=== PATIENT | male | born 1985 | race Caucasian/White ===

== ENCOUNTER 2023-06-06 14:21 | Inpatient (IN) | payer OTHER, SELFPAY ==
--- NOTE | ~2023-06-06 | XR_ITS ---
EXAMINATION: XR HAND/WRIST, RIGHT CLINICAL INFORMATION: Swelling and cellulitis COMPARISON: None TECHNIQUE: PA, lateral, and oblique views of the right hand and wrist. FINDINGS: The bones and soft tissues are unremarkable. No fracture. Alignment is anatomic. Joint spaces are maintained. No erosions or soft tissue calcifications. XR/XR hand wrist RT IMPRESSION: Normal radiographs of the hand and wrist.
[2023-06-06 15:56] VITALS: BP 132/94; PULSE 71; RESP 18; TEMP 37.4; O2SAT 100; BMI 27.1
--- NOTE | 2023-06-06 16:00 | ED_ITS ---
HPI - Extremity Injury (Upper) General Chief Complaint: Extremity Injury, Upper Stated Complaint: hand infection, swollen Time Seen by Provider: 06/06/23 18:32 History of Present Illness HPI narrative: 38 y/o M patient; H IVDU with cocaine; presents from home reporting approx 6 days ago he injected cocaine IV into his right hand. He believed the needle was clean. He is right hand dominant. He noticed that it initially was a little swollen and warm, however thought it may clear up on its own. He went to an Urgent Care and was referred to the ED. He denies known systemic symptoms such as fever or chills, nausea/vomiting, diarrhea, difficulty breathing, or chest pain. He states he had a similar event happen several years ago in his right upper forearm. He denies alcohol use. Related Data Allergies Allergy/AdvReac Type Severity Reaction Status Date / Time No Known Allergies Allergy Verified 06/06/23 16:00 Review of Systems 2 Review of Systems: Yes all other systems are reviewed and are negative PMFSH Past Medical History Attestation statement: The following information was validated with the patient. Source: old records reviewed Social History Social History Advance Directives: No Advance Directives Information Provided: No Physical Exam 2 Vital Signs: Vital Signs: Last Vital Signs Temp 99.4 F 06/06/23 15:56 Pulse 71 06/06/23 15:56 Resp 18 06/06/23 15:56 BP 132/94 H 06/06/23 15:56 Pulse Ox 100 06/06/23 15:56 O2 Del Method Room Air 06/06/23 15:56 BMI result Body Mass Index 27.1 Patient had temp 99.4F, otherwise hemodynamically stable. HEENT: Head: Yes normal to inspection and Yes atraumatic Eyes: General: appearance normal, both eyes and all related structures P upils: Equal, round and reactive pupils present EOM: EOMs intact bilaterally Neck: Neck: Yes normal visual inspection and Yes full ROM Chest: Chest palpation & inspection: normal inspection of the chest and normal palpation of entire chest wall Resp: Effort & Inspection: normal respiratory effort and able to speak in complete sentences Auscultation: clear to auscultation bilaterally Cardio: Rate: regular rate Rhythm: regular rhythm Peripheral pulses: P eripheral pulses 2+ throughout GI: Inspection: Yes normal to inspection Palpation (GI): Soft to palpation, not firm, nontender, no guarding and not rigid Auscultation: normal bowel sounds Neuro: Cranial nerves: Yes Equal, round and reactive pupils present Extrem: Other: Right upper extremity: redness to mid-forearm, edema of hand and fingers, warmth to extremity, ROM limited due to pain and edema. Palpable radial pulse. Soft compartments. Course Course Course Narrative: RME:?38 yo male hx of IVDU here w/ swelling/ redness to right hand/wrist x5 days after injecting drugs into his hand. was seen at yesterday and they advised him to come to the ED however he decided to wait. he was not started on abx at that time. now has increased swelling/ redness and reduced ROM to hand/wrist. significant swelling to right hand/wrist up to mid forearm. dec ROM to right wrist/hand. labs, lactate, blood cultures, imaging ordered. Full HPI, ROS and PE to be performed by the primary ED provider. Reevaluation(s) Reevaluation #1: Reviewed triage work up. Added antibiotics with Cefepime and Vancomycin for IVDU cellulitis. Discussed with orthopedics who agree with plan for admission to medicine for IV antibiotics. Labs with elevated leukocytosis. CRP 10.92. Plan: Admit to hospitalist Condition: Stable Medical Decision Making Lab Data 06/06/23 18:15 06/06/23 18:15 Labs: Lab Results 06/06/23 Range/Units 18:15 WBC 15.5 H (4.8-10.8) X10*3/uL RBC 4.53 L (4.60-5.80) X10*6/uL Hgb 12.8 L (14.0-18.0) g/dl Hct 38.3 L (42.0-52.0) % MCV 84.5 (80.0-98.0) fL MCH 28.3 (27.0-33.0) pg MCHC 33.4 (31.0-36.0) g/dl RDW 12.6 (11.0-16.0) % Plt Count 347 (160-400) X10*3/uL MPV 9.0 L (9.4-12.4) fL Immature Gran % (Auto) 0.5 H (0.0-0.4) % Neut % (Auto) 77.6 H (45-73) % Lymph % (Auto) 12.2 L (20-40) % [place] % (Auto) 9.5 (2-11) % Eos % (Auto) 0.1 (0-4) % Baso % (Auto) 0.1 (0-2) % Lymph # (Auto) 1.9 (1.2-4.9) X10*3/uL [place] # (Auto) 1.5 H (0.1-1.2) X10*3/uL Eos # (Auto) 0.0 (0.0-0.4) X10*3/uL Baso # (Auto) 0.0 (0.0-0.2) X10*3/uL Abs Immat Gran (auto) 0.08 H (0.00-0.03) X10*3/uL Absolute Neuts (auto) 12.0 H (2.0-8.3) x10*3/uL Absolute Nucleated RBC 0.000 (0.0-0.012) X10*3/uL Nucleated RBC % (auto) 0.0 (0.0-0.2) /100WBC Sodium 136 (135-145) mmol/L Potassium 3.7 (3.3-5.1) mmol/L Chloride 98 (96-108) mmol/L Carbon Dioxide 28 (22-29) mmol/L Anion Gap 14 (12-20) BUN 13 (9-16) mg/dL Creatinine 0.90 (0.5-1.4) mg/dL Estim Creat Clear Calc 124.5 Estimated GFR > 60 Random Glucose 142 H (60-115) mg/dL Lactic Acid 1.6 (0.5-2.0) mmol/L Calcium 9.7 (8.4-10.2) mg/dL Magnesium 2.2 (1.6-2.6) mg/dL Total Bilirubin 1.3 H (0.0-1.0) mg/dL AST 19 (5-37) U/L ALT 22 (0-40) U/L Alkaline Phosphatase 79 (39-117) U/L C-Reactive Protein 10.92 H (< or = 0.50) mg/dL Total Protein 8.0 (6.5-8.0) g/dL Albumin 4.2 (3.5-5.0) g/dL Lipase 9 (8-78) U/L Discharge Plan Discharge Clinical Impression: Cellulitis of hand, right, IVDU (intravenous drug user) Patient Disposition: Admitted As Inpatient Print Language: Moldovan
[2023-06-06 18:22] LABS: MANUAL DIFF FLAG NO
[2023-06-06 18:23] LABS: Basophils Percent Auto 0.1 % (0-2); Eosinophils Percent Auto 0.1 % (0-4); Hematocrit 38.3 % (42.0-52.0); Hemoglobin 12.8 g/dl (14.0-18.0); Imm Gran Abs Auto 0.08 X10*3/uL (0.00-0.03); Imm Gran Pct Auto 0.5 % (0.0-0.4); Lymphocytes Absolute Auto 1.9 X10*3/uL (1.2-4.9); Lymphocytes Percent Auto 12.2 % (20-40); Mean Corpuscular HGB Conc 33.4 g/dl (31.0-36.0); Mean Corpuscular Hemoglobin 28.3 pg (27.0-33.0); Mean Corpuscular Volume 84.5 fL (80.0-98.0); Monocytes Absolute Auto 1.5 X10*3/uL (0.1-1.2); Monocytes Percent Auto 9.5 % (2-11); Neutrophils Percent Auto 77.6 % (45-73); Platelet Count 347 X10*3/uL (160-400); Red Blood Count 4.53 X10*6/uL (4.60-5.80); Red Cell Distribution Width 12.6 % (11.0-16.0); White Blood Count 15.5 X10*3/uL (4.8-10.8)
[2023-06-06 18:38] LABS: Alanine Aminotransferase 22 U/L (0-40); Albumin Level 4.2 g/dL (3.5-5.0); Alkaline Phosphatase 79 U/L (39-117); Anion Gap 14 (12-20); Aspartate Amino Transferase 19 U/L (5-37); Bilirubin Total 1.3 mg/dL (0.0-1.0); Blood Urea Nitrogen 13 mg/dL (9-16); C Reactive Protein 10.92 mg/dL (< or = 0.50); Calcium 9.7 mg/dL (8.4-10.2); Carbon Dioxide 28 mmol/L (22-29); Chloride 98 mmol/L (96-108); Creatinine Clr Calc Pharmacy 124.5; Estimated Glomerular Filt Rate > 60; Glucose Random 142 mg/dL (60-115); Lipase 9 U/L (8-78); Magnesium 2.2 mg/dL (1.6-2.6); Potassium 3.7 mmol/L (3.3-5.1); Sodium 136 mmol/L (135-145)
[2023-06-06 18:39] LABS: Lactic Acid 1.6 mmol/L (0.5-2.0)
[2023-06-06] MEDS: cefEPime HCl 2 GM in 0.9 % Sodium Chloride 50 ML IV (18:48)
[2023-06-06 19:06] LABS: Erythrocyte Sedimentation Rate 38 MM/HR (0-15)
--- NOTE | 2023-06-06 19:29 | P.HPHOSP_ITS ---
History of Present Illness Date of Service: 06/06/23 Attending physician on admission: Tatianna Farfan Chief Complaint: Right hand swelling and redness Pt is a 38-year-old male with a PMH significant for?IVDU with cocaine and heroin who presents to the ED for evaluation of right hand swelling, redness, and pain x5-6 days. Patient states has been injecting in his right hand and upper arm, last used cocaine 4 days ago and heroin ?a couple days ago?. Patient initially assumed swelling would go away after a few days, but symptoms worsen until pain was so intense he came to the ED for further evaluation. Denies systemic symptoms: No fever, chills, nausea, or vomiting. Denies shortness of breath. No significant chest pain/pressure, palpitations. Denies abdominal pain. In the ED pt was hypertensive and with elevated temperature of 99.4 degrees, vitals otherwise WNL. Labs were significant for leukocytosis of 15.5, ESR 38, bilirubin 1.3, and CRP 10.92. No significant electrolyte abnormalities. Renal function WNL. Lactic acid WNL at 1.6. X-ray of left hand and wrist showed normal radiographs of the hand and wrist. ED consulted Orthopedics who suggested admission to medicine and starting broad-spectrum antibiotics. Pt was treated with cefepime and vancomycin. Pt will be admitted to the hospital for treatment and further evaluation of right hand cellulitis secondary to IVDU. Review of Systems 2 Review of Systems: Right hand pain, swelling, redness x5-6 days No fever, chills, nausea, vomiting, abdominal pain Denies shortness of breath No chest pain/pressure, palpitations PMFSH Social History Advance Directives: No Advance Directives Information Provided: No Meds Allergies Allergy/AdvReac Type Severity Reaction Status Date / Time No Known Allergies Allergy Verified 06/06/23 16:00 Active Medications: Current Medications Acetaminophen (Acetaminophen 325 Mg Tablet) 650 mg PO Q6H PRN PRN Reason: Pain, Mild (Pain Scale 1-3) Enoxaparin Sodium (Enoxaparin Sodium 40 Mg/0.4 Ml Syringe) 40 mg SUBCUT Q24H REGINO Vancomycin HCl (Vancomycin/Ns) 2,000 mg in 500 mls @ 250 mls/hr IV ONCE ONE Stop: 06/06/23 20:36 Melatonin (Melatonin 3 Mg Tablet) 6 mg PO BEDTIME PRN PRN Reason: Insomnia Ondansetron HCl (Ondansetron Hcl 4 Mg/2 Ml Vial) 4 mg IVPUSH Q8H PRN PRN Reason: Nausea and Vomiting Pharmacy Consult (Consult Rx Vancomycin Dosing) 1 each MISCELLANE DAILY PRN PRN Reason: Consult order Sodium Chloride (0.9 % Sodium Chloride Flush 3 Ml Syringe) 3 ml [facility] Home Medications ?Medication ?Instructions ?Recorded ?Confirmed ?Last Taken ?Type No Known Home Meds 06/06/23 06/06/23 Unknown History Physical Exam 2 Vital Signs and Narrative: Vital Signs: Last Vital Signs Temp 99.4 F 06/06/23 15:56 Pulse 71 06/06/23 15:56 Resp 18 06/06/23 15:56 BP 132/94 H 06/06/23 15:56 Pulse Ox 100 06/06/23 15:56 O2 Del Method Room Air 06/06/23 15:56 BMI result Body Mass Index 27.1 General: AOx3, uncomfortable, in no acute distress Resp: CTA bilaterally CVS: S1, S2, RRR GI: +BS, NT, no distention Skin: Warm, dry Neuro: Cranial nerves II-XII grossly intact bilaterally. Motor grossly intact bilaterally Extremities: Right hand and wrist swelling, erythema, and warmth as pictured below. ROM of fingers and wrist limited secondary to pain and swelling. Psych: Appropriate affect Results Labs 06/06/23 18:15 06/06/23 18:15 Labs: Laboratory Results - last 24 hr 06/06/23 18:15 MCV 84.5 MCH 28.3 MCHC 33.4 RDW 12.6 Plt Count 347 MPV 9.0 L Immature Gran % (Auto) 0.5 H Neut % (Auto) 77.6 H Lymph % (Auto) 12.2 L [place] % (Auto) 9.5 Eos % (Auto) 0.1 Baso % (Auto) 0.1 Lymph # (Auto) 1.9 [place] # (Auto) 1.5 H Eos # (Auto) 0.0 Baso # (Auto) 0.0 Abs Immat Gran (auto) 0.08 H Absolute Neuts (auto) 12.0 H Absolute Nucleated RBC 0.000 Nucleated RBC % (auto) 0.0 ESR 38 H Anion Gap 14 Estim Creat Clear Calc 124.5 Estimated GFR > 60 Random Glucose 142 H Lactic Acid 1.6 Calcium 9.7 Magnesium 2.2 Total Bilirubin 1.3 H AST 19 ALT 22 Alkaline Phosphatase 79 C-Reactive Protein 10.92 H Total Protein 8.0 Albumin 4.2 Lipase 9 Imaging Radiologist's Impressions: Impressions Hand/Wrist X-Ray 06/06/23 16:11 IMPRESSION: Normal radiographs of the hand and wrist. Assessment and Plan (1) Cellulitis of hand, right: Status: Acute (2) IVDU (intravenous drug user): Status: Acute Plan Pt is a 38-year-old male with a PMH significant for?IVDU with cocaine and heroin who presents to the ED for evaluation of right hand swelling, redness, and pain x5-6 days. Pt will be admitted to the hospital for treatment and further evaluation of right hand cellulitis secondary to IVDU. Right hand cellulitis Secondary to IVDU with cocaine, heroin Pt does not meet sepsis criteria: Leukocytosis, but no tachycardia, tachypnea, or fever; lactic acid WNL Patient started on broad-spectrum antibiotics in the ED Will treat with vancomycin, started 06/06/2023 Tramadol for pain management Orthopedic consult Follow cultures IVDU Pt with recent injection of cocaine and heroin Will give methadone 30 mg x1 dose Addiction medicine consult Monitor on COWS Full Code Attending:?Dr. Farfan DVT Prophylaxis: Lovenox Pt will require a hospitalization of at least two nights for treatment of?right hand cellulitis secondary to IVDU. Given the extent of cellulitis and location in hand and wrist, patient will require hospitalization for the administration of IV antibiotics and specialist consultation with Orthopedics. Quality Stroke Does the patient have a stroke diagnosis?: No VTE Prior VTE?: No VTE Risk Level:: Medical - moderate - high VTE Device Contraindication: Treatment Not Indicated VTE Drug Contraindication: N/A - Med Ordered
[2023-06-06] MEDS: traMADoL HCL 50 MG TABLET PO ×2 (19:40→23:00)
[2023-06-06] MEDS: vancomycin/NS 2,000 MG/500 ML PLAST..BAG 250 MG IV (19:43)
[2023-06-06] MEDS: Enoxaparin Sodium 40 MG/0.4 ML SYRINGE SUBCUT (19:44)
--- NOTE | 2023-06-06 19:45 | PHA.MEDREC ---
Pharmacy Consult ? Medication Reconciliation Pharmacy has completed the medication reconciliation. Patient confirmed he is not on medications at home including OTC.
[2023-06-06 19:55] VITALS: BP 147/97; PULSE 78; RESP 18; TEMP 37.4; O2SAT 100
--- NOTE | 2023-06-06 20:02 | PC.NURSE ---
security called to assist with checking patients belongings. pt cooperative with security check
--- NOTE | 2023-06-06 20:06 | MHC.EDTECH ---
PT BELONGINGS (2 KNIVES, PEPPER SPRAY) IN SECURITY OFFICE.
[2023-06-06 20:11] VITALS: PULSE 78
--- NOTE | 2023-06-06 20:15 | PHA.PROG ---
Admission Date/Time: June 06, 2023 18:53 Indication: SKIN INFECTION Weight in k.718 kg Adjusted body weight in Kg: [place] body weight in Kg: Obesity Dosing Indication % IBW: Serum Creatinine - Last 168 Hours 06/06/23 18:15 Creatinine 0.90 Estimated CrCl and GFR - Last 168 Hours 06/06/23 18:15 Estim Creat Clear Calc 124.5 Estimated GFR > 60 Vancomycin Loading Dose: 2000 MG Current Vancomycin Dosing Regimen: 1250 MG Q12H Vancomycin Monitoring using AUC goal of 400 - 600 range with trough as surrogate marker: UCB=354 TROUGH=14.3 Date and Time for next Vancomycin Level to be drawn: 06/08/23 @0600 Pharmacist Comments on Vancomycin Plan: Vancomycin dosing will take advantage of [employer] as a clinical decision support tool that uses Bayesian modeling to calculate individual patient's pharmacokinetic parameters and forecast the patient's drug concentration time course with the target goal AUC 24 range of 400 - 600 mg/L/hr.
[2023-06-06 21:53] VITALS: BMI 24.0
[2023-06-06 21:54] VITALS: BP 166/97; PULSE 71; RESP 18; TEMP 37.2; O2SAT 98
[2023-06-06] MEDS: methADONE HCl 20 MG/2 ML ORAL.CONC 30 MG PO (22:13)
[2023-06-06] MEDS: Melatonin 3 MG TABLET 6 MG PO (23:00)
--- NOTE | 2023-06-06 23:20 | MHC.PIE ---
p; pt arrived from ed c/o pain 12/05 rt hand throbbing and burning. note; pt reports methadone not given in ed i; dr crenshaw notified. new order methadone now p; 40 min later. pt cont to c/o pain 12/05 rt hand, pt also c/o insomnia i; dr crenshaw noltified. give ultram early dose now e; pt given early dose ultram, melatonin and ice pack. will cont to monitor
[2023-06-06 23:47] VITALS: PULSE 71
[2023-06-07 04:00] VITALS: BP 146/99; PULSE 61; RESP 18; TEMP 37.3; O2SAT 98
[2023-06-07] MEDS: traMADoL HCL 50 MG TABLET PO (04:32)
--- NOTE | 2023-06-07 06:21 | MHC.PIE ---
p; pt wants to leave AMA. pt educated on need for iv abx for cellulitis with pt adament about leaving i; dr crenshaw notified; explain to pt the need for at least the po abx. nursing sup notified e; pt welling to stay for an hour for abx prescription. will cont to monitor
[2023-06-07 06:27] LABS: Anion Gap 14 (12-20); Blood Urea Nitrogen 10 mg/dL (9-16); Calcium 9.5 mg/dL (8.4-10.2); Carbon Dioxide 24 mmol/L (22-29); Chloride 101 mmol/L (96-108); Creatinine Clr Calc Pharmacy 147.4; Estimated Glomerular Filt Rate > 60; Glucose Random 136 mg/dL (60-115); Potassium 3.7 mmol/L (3.3-5.1); Sodium 135 mmol/L (135-145)
[2023-06-07 06:31] LABS: Basophils Percent Auto 0.1 % (0-2); Hematocrit 37.7 % (42.0-52.0); Hemoglobin 12.8 g/dl (14.0-18.0); Imm Gran Abs Auto 0.11 X10*3/uL (0.00-0.03); Imm Gran Pct Auto 0.6 % (0.0-0.4); Lymphocytes Absolute Auto 1.7 X10*3/uL (1.2-4.9); Lymphocytes Percent Auto 8.8 % (20-40); MANUAL DIFF FLAG SCAN; Mean Corpuscular Hemoglobin 28.2 pg (27.0-33.0); Mean Platelet Volume 9.4 fL (9.4-12.4); Monocytes Absolute Auto 1.9 X10*3/uL (0.1-1.2); Neutrophils Absolute Auto 15.5 x10*3/uL (2.0-8.3); Neutrophils Percent Auto 80.5 % (45-73); Platelet Count 400 X10*3/uL (160-400); Red Blood Count 4.54 X10*6/uL (4.60-5.80); Red Cell Distribution Width 12.5 % (11.0-16.0); SCAN SMEAR FLAG 1; White Blood Count 19.3 X10*3/uL (4.8-10.8)
[2023-06-07 07:02] LABS: SLIDE REVIEW VERIFIED
--- NOTE | 2023-06-07 07:44 | PM.DS ---
DS: Providers Provider Date of Service: 06/07/23 Date of admission: 06/06/23 18:53 Date of discharge: 06/07/23 Primary care physician: None Physician Consults: 06/06/23 19:31 Addiction Medicine Routine Consulting Provider: Addiction Covering Reason for consultation: polysubstance use disorder 06/06/23 19:32 Consult to Orthopedics Routine Consulting Provider: [facility] Reason for consultation: Right hand cellulitis Attending physician on discharge: Tayler Gooden Discharging clinician: Tayler Gooden DS: Diagnosis Discharge Diagnosis (1) Cellulitis of hand, right: Status: Acute (2) IVDU (intravenous drug user): Status: Acute DS: Summary Hospital Course Hospital Course: 38-year-old male with a PMH significant for?IVDU with cocaine and heroin who presents to the ED for evaluation of right hand swelling, redness, and pain x5-6 days. Patient states has been injecting in his right hand and upper arm, last used cocaine 4 days ago and heroin ?a couple days ago?. Patient initially assumed swelling would go away after a few days, but symptoms worsen until pain was so intense he came to the ED for further evaluation. Denies systemic symptoms: No fever, chills, nausea, or vomiting. Denies shortness of breath. No significant chest pain/pressure, palpitations. Denies abdominal pain. In the ED pt was hypertensive and with elevated temperature of 99.4 degrees, vitals otherwise WNL. Labs were significant for leukocytosis of 15.5, ESR 38, bilirubin 1.3, and CRP 10.92. No significant electrolyte abnormalities. Renal function WNL. Lactic acid WNL at 1.6. X-ray of left hand and wrist showed normal radiographs of the hand and wrist. ED consulted Orthopedics who suggested admission to medicine and starting broad-spectrum antibiotics. Pt was treated with cefepime and vancomycin. Pt will be admitted to the hospital for treatment and further evaluation of right hand cellulitis secondary to IVDU. Hospital course: Patient came with the right hand cellulitis,ivdu-patient was started on IV antibiotics, blood cultures sent, leukocytosis is trending up, and swelling and erythema seems similar, range of motion is also limited-patient decided to leave against medical advice-he is alert oriented x3, risks discussed with him in detail length including patient was strongly advised to get IV antibiotics and ortho evaluation . Risk of losing limb, sepsis, including discussed with him in detail he understand and still wants to leave, could able to repeat to me understanding, also explained to him that p.o. antibiotic might not adequate considering his significant cellulitis, he was also strongly advised to go to nearest emergency room get treatment. Patient was also given p.o. antibiotics. plan: Go to nearest emergency room for treatment of cellulitis Doxycycline 100 mg p.o. b.i.d. and Augmentin 875 mg p.o. b.i.d. for 10 days-supply given. Above management discussed with the patient detail length he understand and in agreement with the above plan, staff was present during the time of discussion, patient is alert oriented x3-risk discussed as above, time spent 40 minutes. Time Attestation Total time managing care of this patient today: 40 mintues. Discharge Coordination Time (in mins): 40 min Quality: Safe Use of Opioids Does Pt have an Active Cancer Diagnosis on the Problem List?: No Quality: Stroke Does the patient have a stroke diagnosis?: No Physical Exam Vital Signs: Vital Signs: Last Vital Signs Temp 99.1 F 06/07/23 04:00 Pulse 61 06/07/23 04:00 Resp 18 06/07/23 04:00 BP 146/99 H 06/07/23 04:00 Pulse Ox 98 06/07/23 04:00 O2 Del Method Room Air 06/07/23 04:00 BMI result Body Mass Index 24.0 limited -leaving ama General: AOx3. Resp: CTA bilaterally CVS: S1, S2, RRR GI: +BS, NT, no distention Skin: Warm, dry Neuro: Cranial nerves II-XII grossly intact bilaterally. Motor grossly intact bilaterally Extremities: Right hand and wrist swelling, erythema, and warmth as pictured below. ROM of fingers and wrist limited secondary to pain and swelling.(please see pic in h&P) Psych: Appropriate affect DS: Data Data Completed and Pending Labs on day of discharge: Laboratory Results - last 24 hr 06/06/23 06/07/23 18:15 05:40 WBC 15.5 H 19.3 H RBC 4.53 L 4.54 L Hgb 12.8 L 12.8 L Hct 38.3 L 37.7 L MCV 84.5 83.0 MCH 28.3 28.2 MCHC 33.4 34.0 RDW 12.6 12.5 Plt Count 347 400 MPV 9.0 L 9.4 Immature Gran % (Auto) 0.5 H 0.6 H Neut % (Auto) 77.6 H 80.5 H Lymph % (Auto) 12.2 L 8.8 L [place] % (Auto) 9.5 10.0 Eos % (Auto) 0.1 0.0 Baso % (Auto) 0.1 0.1 Lymph # (Auto) 1.9 1.7 [place] # (Auto) 1.5 H 1.9 H Eos # (Auto) 0.0 0.0 Baso # (Auto) 0.0 0.0 Abs Immat Gran (auto) 0.08 H 0.11 H Absolute Neuts (auto) 12.0 H 15.5 H Absolute Nucleated RBC 0.000 0.000 Nucleated RBC % (auto) 0.0 0.0 Smear Tech's Comments VERIFIED ESR 38 H Sodium 136 135 Potassium 3.7 3.7 Chloride 98 101 Carbon Dioxide 28 24 Anion Gap 14 14 BUN 13 10 Creatinine 0.90 0.76 Estim Creat Clear Calc 124.5 147.4 Estimated GFR > 60 > 60 Random Glucose 142 H 136 H Lactic Acid 1.6 Calcium 9.7 9.5 Magnesium 2.2 Total Bilirubin 1.3 H AST 19 ALT 22 Alkaline Phosphatase 79 C-Reactive Protein 10.92 H Total Protein 8.0 Albumin 4.2 Lipase 9 Discharge Plan Discharge Anticipated Discharge Date/Time: 06/07/23 07:36 Patient Disposition: Left Against Medical Advice Discharge Diagnosis: Right hand cellulitis Referrals: Physician,None [Primary Care Provider] - 1 Week Discharge Medications: New amoxicillin-pot clavulanate 875-125 mg tablet 1 tab PO Q12H Qty: 20 0RF doxycycline hyclate 100 mg capsule 100 mg PO BID Qty: 20 0RF No Action No Known Home Meds Discharge Orders: Discharge Order (Routine); Ordered 06/07/23 Ordered By: Tayler Gooden Diet: Advance to usual diet Activity on Discharge: As tolerated Print Language: Bhutanese Care Plan Goals: Patient came with the right hand cellulitis,ivdu-patient was started on IV antibiotics, blood cultures sent, leukocytosis is trending up, and swelling and erythema seems similar, range of motion is also limited-patient decided to leave against medical advice-he is alert oriented x3, risks discussed with him in detail length including patient was strongly advised to get IV antibiotics and ortho evaluation . Risk of losing limb, sepsis, including discussed with him in detail he understand and still wants to leave, could able to repeat to me understanding, also explained to him that p.o. antibiotic might not adequate considering his significant cellulitis, he was also strongly advised to go to nearest emergency room get treatment. Patient was also given p.o. antibiotics. Health Concerns: As above. Plan of Treatment: Doxycycline 100 mg p.o. b.i.d. and Augmentin 875 mg p.o. b.i.d. for 10 days-supply given. Assessment: as above. Discharge Date/Time: 06/07/23 08:26
[2023-06-07] MEDS: Doxycycline Monohydrate 100 MG CAPSULE PO (07:48)
[2023-06-07] MEDS: Amoxicillin/Potassium Clav 875 MG TABLET PO (07:48)
--- NOTE | 2023-06-07 08:26 | MHC.CM.PN ---
Patient left AMA prior to being seen by case management.
== END 2023-06-07 08:26 | disposition left against medical advice (07) | DRG 383 ==
LOC: HO.ED 18:53 → HO.EDOVER 18:59 → HO.S3 19:55
PROVIDERS: Physician Assistant Medical; Admitting Provider Student in an Organized Health Care Education/Training Program; Emergency Provider Emergency Medicine; Visit Provider Internal Medicine
DX: L03.113 Cellulitis of right upper limb (principal); F11.90 Opioid use, unspecified, uncomplicated; F14.90 Cocaine use, unspecified, uncomplicated; F17.210 Nicotine dependence, cigarettes, uncomplicated; I10 Essential (primary) hypertension; Z71.6 Tobacco abuse counseling
CPT/HCPCS: 36415; 73110; 73130; 80048; 80053; 83605; 83690; 83735; 85025; 85652; 86140; 87040; 99221; 99285; J0692; J1650; J3370

== ENCOUNTER → 2023-06-06 18:53 | Outpatient (BNV) | payer OTHER, SELFPAY | PROVIDERS: Admitting Provider Student in an Organized Health Care Education/Training Program; Emergency Provider Emergency Medicine; Visit Provider Student in an Organized Health Care Education/Training Program | DX: L03.113 Cellulitis of right upper limb (principal); F19.90 Other psychoactive substance use, unspecified, uncomplicated | CPT/HCPCS: 99222; 99239 ==

== ENCOUNTER 2024-05-20 13:19 | Outpatient (REF) | payer MEDICAID, SELFPAY ==
[2024-05-20 17:03] LABS: Alanine Aminotransferase 63 U/L (0-40); Albumin Level 4.4 g/dL (3.5-5.0); Alkaline Phosphatase 85 U/L (39-117); Aspartate Amino Transferase 45 U/L (5-37); Bilirubin Direct 0.2 mg/dL (0.0-0.5); Bilirubin Total 0.6 mg/dL (0.0-1.0); Total Protein 7.6 g/dL (6.5-8.0)
[2024-05-21 03:43] LABS: Syphilis Screen Nonreactive (Nonreactive)
[2024-05-21 04:06] LABS: HBsAGNum1 0.31 S/CO (0.00-0.99); HIV AB/AG Nonreactive (Nonreactive); HIV Num 1 0.09 S/CO (0.00-0.99); Hepatitis B Surface Antigen Negative (Negative); ~HepC Num1 16.23 S/CO (0.00-0.79); ~Hepatitis C Antibody Reactive (Nonreactive)
[2024-05-22 16:38] LABS: HCV Log PCR 7.23 Log IU/mL (NOT DETECTED)
[2024-05-22 22:18] LABS: TS Negative Control Passed; TS Panel A 0; TS Panel B 3; TS Positive Control Passed; TSpotTB Negative (Negative)
== END 2024-05-20 13:20 | disposition home or self-care (01) ==
LOC: HO.HHCL 13:19
PROVIDERS: Visit Provider Family Medicine
DX: B19.20 Unspecified viral hepatitis C without hepatic coma (principal)
CPT/HCPCS: 36415; 80076; 86481; 86780; 86803; 87340; 87389; 87522

== ENCOUNTER 2024-06-17 09:57 | Outpatient (REF) | payer MEDICAID, SELFPAY ==
--- OUTSIDE RECORDS SUMMARY | 2024-06-17 11:16 | XMS_ITS | Clinical Summary ---
Author Organization [employer] Address [address] [facility] 7t [place] [address] Care Team Providers Care Seat Joiner Chainstitch Name Role Phone Unavailable Primary Care Provider Unavailabl e Allergies No known active allergies Medications cloNIDine (Catapres) 0.1 MG tabletIndicat ions:Opioid type dependence, continuous (CMS/HCC) 1 tablet PO q 8-12 hours for withdrawal. 6 tablet 06/29/19 24 Active ondansetron (Zofran) 4 MG tabletIndicat ions:Opioid type dependence, continuous (CMS/HCC) 1 tab PO q8-12 hours prn nausea or vomiting. 15 tablet 06/29/19 24 Active ibuprofen 800 MG tablet 1 tablet PO q8 hours prn pain. Take with food. 30 tablet 06/29/19 24 Active naloxone (Narcan) 4 mg/0.1 mL nasal sprayIndicati ons:Opioid type dependence, continuous (CMS/HCC) Administer 1 spray (4 mg) into affected nostril(s) if needed for opioid reversal. May repeat every 2-3 minutes if needed, alternating nostrils, until medical assistance becomes available. 2 each 5 04/02/19 25 026 Active Buprenorphine HCl-Naloxone HCl (Suboxone) 8-2 MG SL filmIndicatio ns:Opioid use Place 3 Film under the tongue Once per day for 7 days. 21 Film 06/13/19 25 025 Active Buprenorphine HCl-Naloxone HCl (Suboxone) 8-2 MG SL filmIndicatio ns:Opioid use Place 3 Film under the tongue Once per day for 7 days. 21 Film 05/16/19 25 025 Discontinued(Re order (will not trigger notification to Pharmacy)) Buprenorphine HCl-Naloxone HCl (Suboxone) 8-2 MG SL filmIndicatio ns:Opioid use Place 3 Film under the tongue Once per day for 7 days. 21 Film 05/23/19 25 025 Discontinued(Re order (will not trigger notification to Pharmacy)) Buprenorphine HCl-Naloxone HCl (Suboxone) 8-2 MG SL filmIndicatio ns:Opioid use Place 3 Film under the tongue Once per day for 7 days. 21 Film 05/28/19 25 025 Discontinued(Re order (will not trigger notification to Pharmacy)) Buprenorphine HCl-Naloxone HCl (Suboxone) 8-2 MG SL filmIndicatio ns:Opioid use Place 3 Film under the tongue Once per day for 7 days. 21 Film 06/05/19 25 025 Discontinued(Re order (will not trigger notification to Pharmacy)) Active Problems Problem Noted Date Diagnosed Date Opioid use 04/02/2024 Assessment & Plan (05/06/2024 5:17 PM EDT): - stage of change: action - Utox review: bup, drew, thc (patient confirms) - Overdose risk: decreased tolerance (released from halfway in Jan 2024); mixed drug use; history of overdose; using alone - Continue current recovery support - Continue current recovery effort - Reviewed harm reduction and overdose prevention Assessment & Plan (04/02/2024 12:01 PM EST): - stage of change: action - Utox review: bup, drew, thc (patient confirms) - Overdose risk: decreased tolerance (released from halfway in Jan 2024); mixed drug use; history of overdose; using alone - Continue current recovery support - Continue current recovery effort - Reviewed harm reduction and overdose prevention Encounters Date Type Department Care Team Description 06/17/2024 10:00 AM EDT Office Visit [facility] [address] [place] [address] Ramon Weller MD Uncomplicated opioid dependence (CMS/HCC) (Primary Dx); Tobacco use disorder; Cocaine use 06/17/2024 Travel 06/11/2024 Refill [facility] [address] [place] [address] Norma Pedraza RN Opioid use 06/10/2024 10:00 AM EDT Clinical Support [address] [address] Norma Pedraza RN Opioid type dependence, continuous (CMS/HCC) (Primary Dx) 06/10/2024 Patient Outreach [address] [address] Robert Cifuentes Recovery Supports 06/10/2024 Travel 06/04/[address] [address] Norma Pedraza RN Opioid use 06/03/2024 11:00 AM EDT Clinical Support [address] [address] Norma Pedraza RN Opioid type dependence, continuous (CMS/HCC) (Primary Dx) 06/03/2024 Travel 06/03/[address] [address] Phyllis Byrd RN 05/29/2024 Orders Only [address] [address] Phyllis Byrd, JAKE Hepatitis C virus infection without hepatic coma, unspecified chronicity 05/27/2024 10:30 AM EDT Clinical Support [address] [address] Phyllis Byrd RN Uncomplicated opioid dependence (CMS/HCC) (Primary Dx) 05/27/[address] [address] Phyllis Byrd, JAKE Opioid use 05/27/[address] [address] Phyllis Byrd RN 05/27/2024 Travel 05/22/[address] [address] Norma Pedraza RN Opioid use 05/20/2024 2:45 PM EDT Office Visit [address] [address] Grant Hickman MD Opioid type dependence, continuous (CMS/HCC) (Primary Dx) 05/20/2024 Orders Only [facility] [place] [address] Marilynn Coffman MD 05/20/2024 Travel 05/15/2024 Refill [facility] [place] [address] Norma Pedraza RN Opioid use 05/15/2024 Patient Outreach [facility] [place] [address] Robert Cifuentes Recovery Supports 05/14/2024 9:00 AM EDT Clinical Support [facility] [place] [address] Myriam Oconnor RN Uncomplicated opioid dependence (CMS/HCC) (Primary Dx) 05/14/2024 Patient Outreach [facility] [place] [address] Kirt Alcantara Recovery Supports 05/14/2024 Travel 05/09/2024 Population Health Risk Score [facility] () Department [address] [place] [phone] Provider, Population Health Generic 05/07/2024 3:30 PM EDT Clinical Support [facility] [place] [address] Myriam Oconnor RN Opioid use (Primary Dx) 05/07/2024 Travel 05/07/2024 Refill [facility] [place] [address] Myriam Oconnor RN Opioid use 04/30/2024 9:30 AM EST Clinical Support [facility] [place] [address] Myriam Oconnor RN Uncomplicated opioid dependence (CMS/HCC) (Primary Dx) 04/30/2024 Refill [facility] [place] [address] Myriam Oconnor, JAKE Opioid use 04/30/2024 Travel 04/30/2024 Refill [facility] [place] [address] Myriam Oconnor RN Opioid use 04/23/2024 1:00 PM EST Clinical Support [facility] [address] [place] [phone] Norma Pedraza, JAKE Uncomplicated opioid dependence (CMS/HCC) (Primary Dx) 04/23/2024 Travel 04/16/2024 Refill [facility] [address] [place] [phone] Myriam Oconnor RN Opioid use 04/09/2024 11:00 AM EST Clinical Support [facility] [address] [place] [phone] Myriam Oconnor RN Uncomplicated opioid dependence (CMS/HCC) (Primary Dx) 04/09/2024 Refill [facility] [address] [place] [address] Myriam Oconnor RN Opioid use 04/09/2024 Travel 04/04/2024 Refill [facility] [address] [place] [address] Myriam Oconnor RN Opioid use 04/04/2024 Telephone [facility] [address] [place] [address] Myriam Oconnor, JAKE PT-1 04/04/[address] [address] Myriam Oconnor, JAKE New Patient request 04/02/2024 11:00 AM EST Office Visit [address] [address] Marilynn Coffman MD Opioid use (Primary Dx); Hepatitis C virus infection without hepatic coma, unspecified chronicity; Opioid type dependence, continuous (CMS/HCC) 04/02/2024 Travel 04/01/2024 Telephone [facility] [address] [place] [phone] Norma Pedraza, AJKE from Last 3 Months Immunizations Name Administration Dates Next Due Pfizer Covid-19 Vaccine 12+ lori-sucrose (Sterling C ap) 05/15/2022 Social History Tobacco Use Types Packs/Day Years Used Date Smoking Tobacco: Every Day Cigarettes Smokeless Tobacco: Never Tobacco Cessation:Ready to Q uit: Not Asked; Counseling Given: Not Answered Sex and Gender Information Value Date Recorded Sex Assigned at Male 05/15/2022 9:36 AM EDT Legal Sex Male 9:33 AM EDT Gender Identity Male 05/15/2022 9:36 AM EDT Sexual Orientation Straight 06/18/2023 12 :47 PM EDT Sexual Orientation Choose not to disclose 2023 12:47 PM EDT Last Filed Vital Signs Vital Sign Reading Time Taken Comments Blood Pressure 110/66 06/29/2023 1:20 PM EDT Pulse 80 06/29/2023 1:20 PM EDT Temperature - - Respiratory Rate 16 06/29/2023 1:20 PM EDT Oxygen Saturation - - Inhaled Oxygen Concentration - - Weight - - Height - - Body Mass Index - - Plan of Treatment Upcoming Encounters Date Type Department Care Team (Late st Contact Info) Description 06/24/2024 10:45 AM EDT Office Visit [facility] [address] [place] [phone] Ramon Weller MD [address] [place] [phone] 09/05/2024 10:00 AM EDT Office Visit [facility] [address] [place] [address] Annette Valle MD [address] [place] [phone] Health Maintenance Due Date Last Done Comments Depression Screening 1987 Lipid Panel 1987 SDOH Screening 1987 Alcohol/Substance Use Screening 1999 Family Planning (PISQ) 2002 DTaP/Tdap/Td Vaccines (1 - Tdap) 2006 Pneumococcal Vaccine: Pediatrics (0 to 5 Years) and At-Risk Patients (6 to 49) Years) (1 of 2 - PCV) 2006 COVID-19 Vaccine (2 - 2023-2 5 season) 2023 05/15/2022 Hepatitis B Vaccines (3 of 3 - 19+ 3-dose series) 03/09/2024 01/13/2024, 07/13/2023 Tobacco Screening 05/20/2025 05/20/2024 Zoster Vaccines (1 of 2) 2037 RSV Patients and Patients Aged 60 years or older (1 - 1-dose 75+ series) 2062 Influenza Vaccine Completed 11/29/2023 Hepatitis A Vaccines Completed 01/13/2024, 07/13/2023 HIV Screening Completed 05/20/2024 HIB Vaccines Aged Out No longer eligi ble based on patient's age to complete this topic HPV Vaccines Aged Out No longer eligi ble based on patient's age to complete this topic IPV Vaccines Aged Out No longer eligi ble based on patient's age to complete this topic Meningococcal Vaccine Aged Out No shari thuy eligible based on patient's age to complete this topic RSV under 20 months Aged Out No longe r eligible based on patient's age to complete this topic Rotavirus Vaccines Aged Out No longer eligible based on patient's age to complete this topic Goals Goal Patient Goal Type Associated Problems Recent Progress Patient-Stated? Author Establish reliable transportation General Not on track(2024 9:44 AM EDT) No Aime Encinas, JAKE Note: Will set up PT-1. 04/30/24 PT-1 set up and pt will request rides. Got a ride today. Increase coping skills to promote long-term recovery and improve ability to perform daily activities General On track(2024 9:45 AM EDT) No Myriam Oconnor, JAKE Keep your medical appointments Lifestyle No Myriam Oconnor RN Procedures Procedure Name Priority Date/Time Associated Diagnosis Comments POCT CASSIDY-14 URINE DRUG SCREEN Routine 06/17/2024 9:24 AM EDT Uncomplicated opioid dependence (CMS/HCC) POCT CASSIDY-14 URINE DRUG SCREEN Routine 06/10/2024 2:22 PM EDT Opioid type dependence, continuous (CMS/HCC) POCT CASSIDY-14 URINE DRUG SCREEN Routine 06/03/2024 10:38 AM EDT Opioid type dependence, continuous (CMS/HCC) POCT CASSIDY-14 URINE DRUG SCREEN Routine 05/27/2024 10:45 AM EDT Uncomplicated opioid dependence (CMS/HCC) HEPATITIS C VIRAL RNA, QUANTITATIVE, REAL-TIME PCR Routine 05/20/2024 1:29 PM EDT HIV 1/2 ANTIGEN/ANTIBODY, FOURTH GENERATION W/RFL Routine 05/20/2024 1:29 PM EDT Hepatitis C virus infection without hepatic coma, unspecified chronicity HEPATITIS C AB W/REFL TO HCV RNA, QN, PCR Routine 05/20/2024 1:29 PM EDT Hepatitis C virus infection without hepatic coma, unspecified chronicity HEPATITIS B SURFACE ANTIGEN, EIA Routine 05/20/2024 1:29 PM EDT Hepatitis C virus infection without hepatic coma, unspecified chronicity T-SPOT(R).TB Routine 05/20/2024 1:26 PM EDT Hepatitis C virus infection without hepatic coma, unspecified chronicity SYPHILIS SCREEN Routine 05/20/2024 1:26 PM EDT Hepatitis C virus infection without hepatic coma, unspecified chronicity HEPATIC FUNCTION PANEL Routine 05/20/2024 1:26 PM EDT Hepatitis C virus infection without hepatic coma, unspecified chronicity POCT CASSIDY-14 URINE DRUG SCREEN Routine 05/20/2024 1:17 PM EDT Opioid type dependence, continuous (CMS/HCC) POCT CASSIDY-14 URINE DRUG SCREEN Routine 05/14/2024 9:15 AM EDT Uncomplicated opioid dependence (CMS/HCC) POCT CASSIDY-14 URINE DRUG SCREEN Routine 05/07/2024 3:30 PM EDT Opioid use POCT CASSIDY-14 URINE DRUG SCREEN Routine 04/30/2024 10:23 AM EST Uncomplicated opioid dependence (CMS/HCC) POCT CASSIDY-14 URINE DRUG SCREEN Routine 04/23/2024 1:20 PM EST Uncomplicated opioid dependence (CMS/HCC) POCT CASSIDY-14 URINE DRUG SCREEN Routine 04/09/2024 11:07 AM EST Uncomplicated opioid dependence (CMS/HCC) POCT CASSIDY-14 URINE DRUG SCREEN Routine 04/02/2024 11:50 AM EST Opioid use from Last 3 Months Results * POCT CASSIDY-14 Urine Drug Screen (06/17/2024 9:24 AM EDT) Only the most recent of11 resultswithin the time period is included. THC Positive Cocaine Screen, Urine Positive Opiate Screen, Urine Negative Methamphetamine Screen Urine Negative Amphetamine Screen, Urine Negative Benzodiazepines Screen, Urine Negative Barbiturate Screen, Urine Negative Methadone Screen, Urine Negative Buprenophine Screen, Urine Positive TCA, Urine Negative MDMA Urine Negative ng/mL Oxycodone Screen, Urine Negative Phencyclidine (PCP), Urine Negative Fentanyl, Urine Positive Urine Urine specimen obtained by clean catch procedure / Unknown 06/17/2024 9:24 AM EDT Ramon Weller MD POINT OF CARE TEST ENTER/EDIT ORDERABLES Final Result * (ABNORMAL) Hepatitis C Viral RNA, Quantitative, Real-Time PCR (05/20/2024 1:29 PM EDT) Hepatitis C Viral Load [id number]( A) NOT DETECTED IU/mL [facility] HCV Log PCR 7.23(A) NOT DETECTED Log IU/mL [facility] Comment:For additional infor matapolinar, please refer tohttp://education.[employer])/faq/FTU24i2(This link is being provided for informational/educational purposes only.)THIS TEST WAS PERFORMED AT:[employer] [place] [id number] MOTT MD 05/20/2024 1:29 PM EDT 05/21/2024 12:08 PM EDT Marilynn Coffman MD LAB BLOOD ORDERABLES Final Resul t Performing Organization Address [facility] Co de Phone Number [facility] [address] [place] [phone] * (ABNORMAL) Hepatitis C Antibody with Reflex to HCV, RNA, Quantitative, Real- Time PCR (05/20/2024 1:29 PM EDT) Pathologist [facility] Hepatitis C Antibody Reactive( A) Nonreactive [facility] Comment:Presumptive evidence of antibodies to HCV. Blood Venous blood specimen / Unknown 05/20/2024 1:29 PM EDT 05/20/2024 4:21 PM EDT us Marilynn Coffman MD LAB BLOOD ORDERABLES Final Resul t Performing Organization Address [facility] Co de Phone Number [facility] [address] [place] [phone] * Hepatitis B surface antigen, EIA (05/20/2024 1:29 PM EDT) [facility] Hepatitis B Surface Ag Negative Negative [facility] Blood Venous blood specimen / Unknown 05/20/2024 1:29 PM EDT 05/20/2024 4:21 PM EDT Marilynn Coffman MD LAB BLOOD ORDERABLES Final Resul t Performing Organization Address [facility] Co de Phone Number [facility] [address] [place] [phone] * HIV-1/2 Antigen and Antibodies, Fourth Generation, with Reflexes (05/20/2024 1:29 PM EDT) Pathologist [facility] HIV AB/AG Nonreactive Nonreactive [facility] Comment:HIV-1 p24 Ag and/or HIV-1/HIV-2 Ab not detected.A test result that is nonreactive does not exclude thepossibility of exposure to or infection with HIV-1 and/orHIV-2. Nonreactive results in this assay for individualswith prior exposure to HIV-1 and/or HIV-2 may be due toantigen and antibody levels that are below the limit ofdetection of this assay.The [employer] HIV Ag/Ab Combo assay result andsupplemental assay results should be interpreted inconjunction with the patient's clinical presentation,history and other laboratory results. If the results areinconsistent with clinical evidence, additional testing issuggested to confirm the result. Blood Venous blood specimen / Unknown 05/20/2024 1:29 PM EDT 05/20/2024 4:21 PM EDT Marilynn Coffman MD LAB BLOOD ORDERABLES Final Resul t Performing Organization Address City/[facility]/ZIP Co de Phone Number [facility] [address] [place] [phone] * Syphilis Screen (05/20/2024 1:26 PM EDT) Syphilis Screen Nonreactive Nonreactive [facility] Blood 05/20/2024 1:26 PM EDT 05/20/2024 4:21 PM EDT Marilynn Coffman MD LAB BLOOD ORDERABLES Final Resul t Performing Organization Address [facility] Co de Phone Number [facility] [address] [place] [phone] * T-SPOT??.TB (05/20/2024 1:26 PM EDT) T Spot TB Negative Negative [facility] Comment:A negative test resu lt does not exclude the possibilityof exposure to or infection with Mycobacteriumtuberculosis (M. tuberculosis). Patients with recentexposure to TB infected individuals exhibiting anegative T-SPOT.TB result should be considered forretesting within 6 weeks or if other relevant clinicalsymptoms indicate. Results from T-SPOT.TB testing mustbe used in conjunction with each individual'sepidemiological history, current medical status,and results of other diagnostic evaluations.The T-SPOT.TB test is qualitative and results arereported as positive, borderline, or negative, giventhat the test controls perform as expected. In linewith the Centers for Disease Control and Prevention's2010 recommendation to report quantitative measurementsalongside the qualitative result, the laboratoryprovides spot counts for informational purposes only.The T-SPOT.TB test should not be interpreted as aquantitative test. TS PANEL A 0 [facility] TS PANEL B 3 [facility] Negative Control Passed [facility] Positive Control Passed [facility] Comment:For additional infor mation, please refer tohttp://education.[employer] ([employer])/faq/DNV060(This link is being provided for informational/educational purposes only.)REPORT COMMENT:RECD IN [facility] TEST WAS PERFORMED AT:[email or web address] [id number] [place] [id number] RUVALCABA MD,PHD 05/20/2024 1:26 PM EDT 05/20/2024 4:06 PM EDT us Marilynn Coffman MD LAB BLOOD ORDERABLES Final Resul t [facility] [address] [place] [phone] * (ABNORMAL) Hepatic Function Panel (05/20/2024 1:26 PM EDT) Bilirubin, Total 0.6 0.0 - 1.0 mg/dL [facility] Bilirubin, Direct 0.2 0.0 - 0.5 mg/dL [facility] Aspartate Amino Transferase 45(H) 5 - 37 U/L [facility] Comment:Slight Hemolysis.Int erpret result with caution. Alanine Aminotransferase 63(H) 0 - 40 U/L [facility] Total Protein 7.6 6.5 - 8.0 g/dL [facility] Albumin Level 4.4 3.5 - 5.0 g/dL [facility] Alkaline Phosphatase 85 39 - 117 U/L [facility] Blood Venous blood specimen / Unknown 05/20/2024 1:26 PM EDT 05/20/2024 4:06 PM EDT us Marilynn Coffman MD LAB BLOOD ORDERABLES Final Resul t [facility] [address] [place] [phone] from Last 3 Months Insurance [facility] C3
--- OUTSIDE RECORDS SUMMARY | 2024-06-17 11:16 | XMS_ITS | Encounter Summary ---
Author Organization [employer] [facility] Address [address] [facility] 7t [place] [address] Care Team Providers Care Aboriginal Ceremonial Celebrant Name Role Phone Unavailable Primary Care Provider Unavailabl e Reason for Visit * Reason Comments OBAT F/U Encounter Details Date Type Department Care Team (Latest Contact Info) Description 06/17/2024 10:00 AM EDT Office Visit [facility] [address] [place] [address] [phone] Ramon Weller MD [address] [place] [phone] Uncomplicated opioid dependence (CMS/HCC) (Primary Dx); Tobacco use disorder; Cocaine use Social History Tobacco Use Types Packs/Day Years Used Date Smoking Tobacco: Every Day Cigarettes Smokeless Tobacco: Never Sex and Gender Information Value Date Recorded Sex Assigned at Male 05/15/2022 9:36 AM EDT Legal Sex Male 9:33 AM EDT Gender Identity Male 05/15/2022 9:36 AM EDT Sexual Orientation Straight 06/18/2023 12 :47 PM EDT Sexual Orientation Choose not to disclose 2023 12:47 PM EDT documented as of this encounter Plan of Treatment Upcoming Encounters Date Type Department Care Team (Late st Contact Info) Description 06/24/2024 10:45 AM EDT Office Visit [facility] [address] [place] [phone] Ramon Weller MD [address] [place] [address] [phone] 09/05/2024 10:00 AM EDT Office Visit [facility] [address] [place] [address] Annette Valle MD [address] [place] [address] documented as of this encounter Goals Goal Patient Goal Type Associated Problems [...] Keep your medical appointments Lifestyle No Myriam Oconnor, JAKE documented as of this encounter Procedures Procedure Name Priority Date/Time Associated Diagnosis Comments POCT CASSIDY-14 URINE DRUG SCREEN Routine 06/17/2024 9:24 AM EDT Uncomplicated opioid dependence (CMS/HCC) documented in this encounter Results * POCT CASSIDY-14 Urine Drug Screen (06/17/2024 9:24 AM EDT) THC Positive Cocaine Screen, Urine Positive Opiate [...] OF CARE TEST ENTER/EDIT ORDERABLES Final Result documented in this encounter Visit Diagnoses Diagnosis Uncomplicated opioid dependence (CMS/HCC)- Primary Tobacco use disorder Cocaine use documented in this encounter
--- OUTSIDE RECORDS SUMMARY | 2024-06-17 11:16 | XMS_ITS | Clinical Summary ---
Author Organization [facility] Address [address] [place] [address] Care Team Providers Care Sanitation Tank Washer Name Role Phone Unavailable Primary Care Provider Unavailabl e Source Comments PLEASE NOTE, if this patient is a minor, it may be UNLAWFUL to discuss sensitive information that is contained in these records (such as FAMILY PLANNING, MENTAL HEALTH or SUBSTANCE ABUSE) with the minor patient's parent or other person without the patient's specific authorization.[facility] Medications amoxicillin (AMOXIL) 500 mg capsuleIndicati ons:Toothache Take 1 Capsule by mouth 3 (three) times daily 21 Capsule 03/03/2022 Active ibuprofen 600 mg tabletIndicatio ns:Toothache Take 1 Tablet by mouth 4 (four) times daily as needed for pain 30 Tablet 03/03/2022 Active acetaminophen (TYLENOL) 500 mg tabletIndicatio ns:Toothache Take 1 Tablet by mouth every 6 (six) hours as needed for pain 30 Tablet 03/03/2022 Active Active Problems No known active problems Social History Tobacco Use Types Packs/Day Years Used Date Smoking Tobacco: Never Assessed Social Connections Answer Date Recorded Connectedness 0 11/10/2023 Financial Resource Strain Answer Date R ecorded Financial Resource Strain 0 2022 Stress Answer Date Recorded Stress 0 03/03/2022 Physical Activity Answer Date Recorded Physical Activity 0 03/03/2022 Food Insecurity Answer Date Recorded Food 0 11/22/2023 Transportation Needs Answer Date Record ed Transportation 0 03/03/2022 Housing Stability Answer Date Recorded Housing 0 03/03/2022 Safety and Environment Answer Date Sahil rded Safety 0 03/03/2022 Utilities Answer Date Recorded Utilities 0 03/03/2022 Employment Answer Date Recorded Stress 0 11/10/2023 Sex and Gender Information Value Date Recorded Sex Assigned at Not on file Legal Sex Male 10:04 AM PST Gender Identity Not on file Sexual Orientation Not on file Last Filed Vital Signs Vital Sign Reading Time Taken Comments Blood Pressure 172/99 03/03/2022 9:35 AM EST Pulse 82 03/03/2022 9:35 AM EST Temperature - - Respiratory Rate - - Oxygen Saturation - - Inhaled Oxygen Concentration - - Weight - - Height - - Body Mass Index - - Plan of Treatment Health Maintenance Due Date Last Done Comments Anxiety Screening 1987 Diabetes Screening 1987 Hepatitis C Screening 1987 Tobacco Screening 1987 HIV Screening 2002 Imm-DTaP/Tdap/Td (1 - Tdap) 2006 Imm-Hepatitis B (1 of 3 - 19+ 3-dose series) Hypertension Screening (#1) 03/03/2023 [id number] ( season) 2023 Imm-Influenza (#1) 2023 Alcohol and Drug Screen 02/27/2024 Depression Annual Screen 02/27/2024 Insurance [place]
--- OUTSIDE RECORDS SUMMARY | 2024-06-17 11:16 | XMS_ITS | Encounter Summary ---
Author Organization [employer] Address [address] [place] [address] Care Team Providers Care Sterile Process Coordinator Name Role Phone Unavailable Primary Care Provider Unavailabl e Encounter Details Date Type Department Care Team (Latest Contact Info) Description 06/17/2024 Travel Social History Tobacco Use Types Packs/Day Years [...] Description 06/24/2024 10:45 AM EDT Office Visit [facility] [address] [place] [phone] Ramon Weller MD [address] [place] [phone] 09/05/2024 10:00 AM EDT Office Visit [facility] [address] [place] [phone] Annette Valle MD [address] [place] [phone] documented as of this encounter Goals Goal Patient Goal Type Associated Problems Recent Progress Patient-Stated? Author Establish reliable transportation General Not on track(2024 9:44 AM EDT) No Aime Encinas RN Note: Will set up PT-1. 04/30/24 PT-1 set up and pt will request rides. Got a ride today. Increase coping skills to promote long-term recovery and improve ability to perform daily activities General On track(2024 9:45 AM EDT) No Myriam Oconnor, RN Keep your medical appointments Lifestyle No Myriam Oconnor RN documented as of this encounter Visit Diagnoses Not on filedocumented in this encounter
--- OUTSIDE RECORDS SUMMARY | 2024-06-17 11:16 | XMS_ITS | Clinical Summary ---
Author Organization [facility] Address [address] [place] [address] Care Team Providers Care Component Prep Operator Name Role Phone Unavailable Primary Care Provider Unavailabl e Social History Tobacco Use Types Packs/Day Years Used Date Smoking Tobacco: Never Assessed Sex and Gender Information Value Date Recorded Sex Assigned at Not on file Legal Sex Male 4:21 AM EST Gender Identity Not on file Sexual Orientation Not on file Plan of Treatment Health Maintenance Due Date Last Done Comments DTaP,Tdap,and Td Vaccines (1 - Tdap) 2006 Hepatitis B Vaccines (1 of 3 - 19+ 3-dose series) 2006 COVID-19 Vaccine (2023-2 5 season) 2023 Influenza Vaccine (Season Ended) 2024 HIB Vaccines Aged Out No longer eligi ble based on patient's age to complete this topic HPV Vaccines Aged Out No longer eligi ble based on patient's age to complete this topic Hepatitis A Vaccines Aged Out No long er eligible based on patient's age to complete this topic IPV Vaccines Aged Out No longer eligi ble based on patient's age to complete this topic MMR Vaccines Aged Out No longer eligi ble based on patient's age to complete this topic Meningococcal ACWY Vaccine Aged Out N o longer eligible based on patient's age to complete this topic Meningococcal B Vaccine Aged Out No l onger eligible based on patient's age to complete this topic Pneumococcal Vaccine: Pediat rics (0 to 5 Years) and At-Risk Patients (6 to 64 Years) Aged Out No longer eligible b ased on patient's age to complete this topic RSV Immunization Patients Un mckay 20 months Aged Out No longer eligible b ased on patient's age to complete this topic Varicella Vaccines Aged Out No longer eligible based on patient's age to complete this topic
--- OUTSIDE RECORDS SUMMARY | 2024-06-17 11:16 | XMS_ITS | Encounter Summary ---
Author Organization [employer] [facility] Address [address] [place] [address] [address] [place] [address] Care Team Providers Care Razor Sharpener Name Role Phone Unavailable Primary Care Provider Unavailabl e Reason for Visit * Reason Onset Date Comments Med Refill 06/11/2024 Encounter Details Date Type Department Care Team (Late Contact Info) Description 06/11/2024 Refill [facility] [address] [place] [phone] Norma Pedraza RN Opioid use Social History Tobacco Use Types Packs/Day [...] Encounters Date Type Department Care Team (Late Contact Info) Description 06/24/2024 10:45 AM EDT Office Visit [facility] [address] [place] [phone] Ramon Weller MD [address] [place] [address] [phone] 09/05/2024 10:00 AM EDT Office Visit [facility] [address] [place] [phone] Annette Valle MD [address] [place] [phone] documented as of this encounter Goals Goal [...] Oconnor, JAKE documented as of this encounter Visit Diagnoses Diagnosis Opioid use documented in this encounter
[2024-06-17 11:27] LABS: MANUAL DIFF FLAG NO
[2024-06-17 11:36] LABS: INTERNATIONAL NORM RATIO 1.1 (0.9-1.1); Prothrombin Time 12.3 SEC (10.9-12.4)
[2024-06-17 11:37] LABS: Basophils Percent Auto 0.4 % (0-2); Eosinophils Absolute Auto 0.1 X10*3/uL (0.0-0.4); Eosinophils Percent Auto 1.4 % (0-4); Hematocrit 45.7 % (42.0-52.0); Imm Gran Abs Auto 0.02 X10*3/uL (0.00-0.03); Imm Gran Pct Auto 0.3 % (0.0-0.4); Lymphocytes Absolute Auto 2.1 X10*3/uL (1.2-4.9); Mean Corpuscular HGB Conc 32.8 g/dl (31.0-36.0); Mean Corpuscular Hemoglobin 27.8 pg (27.0-33.0); Mean Corpuscular Volume 84.8 fL (80.0-98.0); Mean Platelet Volume 9.8 fL (9.4-12.4); Monocytes Absolute Auto 0.5 X10*3/uL (0.1-1.2); Monocytes Percent Auto 6.3 % (2-11); Neutrophils Absolute Auto 4.9 x10*3/uL (2.0-8.3); Neutrophils Percent Auto 63.6 % (45-73); Platelet Count 343 X10*3/uL (160-400); Red Blood Count 5.39 X10*6/uL (4.60-5.80); Red Cell Distribution Width 12.8 % (11.0-16.0); White Blood Count 7.7 X10*3/uL (4.8-10.8)
[2024-06-17 12:07] LABS: Alanine Aminotransferase 34 U/L (0-40); Albumin Level 4.5 g/dL (3.5-5.0); Alkaline Phosphatase 80 U/L (39-117); Anion Gap 11 (12-20); Aspartate Amino Transferase 35 U/L (5-37); Bilirubin Total 1.5 mg/dL (0.0-1.0); Blood Urea Nitrogen 13 mg/dL (9-16); Calcium 9.8 mg/dL (8.4-10.2); Carbon Dioxide 30 mmol/L (22-29); Chloride 105 mmol/L (96-108); Estimated Glomerular Filt Rate > 60; Glucose Random 105 mg/dL (60-115); Potassium 3.9 mmol/L (3.3-5.1); Sodium 142 mmol/L (135-145); Total Protein 7.6 g/dL (6.5-8.0)
[2024-06-20 19:40] LABS: FIB-ALT 26 U/L (9-46); FIB-Alpha-2-Macroglobulin 146 mg/dL (106-279); FIB-Apolipoprotein A1 107 mg/dL (94-176); FIB-GGT 28 U/L (3-90); FIB-Haptoglobin 167 mg/dL (43-212); FIB-Total Bilirubin 1.3 mg/dL (0.2-1.2); Liver Fibrosis Score 0.23; Liver Fibrosis Stage F0-F1; Nec Inflam Act Grade A0; Nec Inflam Act Score 0.11; Reference ID 5454379
[2024-06-23 18:09] LABS: Hepatitis C Genotype 1a
== END 2024-06-17 09:58 | disposition home or self-care (01) ==
LOC: HO.HHCL 09:57
PROVIDERS: Visit Provider Family Medicine
DX: B19.20 Unspecified viral hepatitis C without hepatic coma (principal)
CPT/HCPCS: 36415; 80053; 81596; 85025; 85610; 87902